=== PATIENT | male | born 2000 | race Caucasian/White ===

== ENCOUNTER 2019-04-02 14:50 | Emergency (ER) | payer SELFPAY ==
--- NOTE | 2019-04-02 15:09 | RAD ---
Exam: Chest 2 views HISTORY:Difficulty breathing, dyspnea Comparison: None FINDINGS: Lungs: No masses or consolidation. Cardiac silhouette: Normal size Pulmonary vessels: Normal Pleural Spaces: Clear Pneumothorax: None Osseous abnormalities: None of acuity. IMPRESSION: No focal consolidation.
[2019-04-02 15:37] LABS: #Eosinphils 0.2 thou/uL (0.0-0.7); #Lymphocytes 1.5 thou/uL (1.20-3.40); #Monocytes 0.7 thou/uL (0.11-0.59); #Neutrophils 6.8 thou/uL (1.40-6.50); %Basophils 0.5 % (0.0-1.0); %Lymphocytes 16.2 % (28.0-48.0); %Monocytes 7.7 % (0.0-4.0); %Neutrophils 73.7 % (31.0-61.0); Hemoglobin 16.3 g/dL (14.0-18.0); Mean Corpuscular HGB CONC 33.9 g/dL (32.0-36.0); Mean Corpuscular Hemoglobin 30.2 pg (25.0-35.0); Mean Corpuscular Volume 89.1 fL (78.0-98.0); Mean Platelet Volume 7.8 fL (7.4-10.4); Platelet Count 270 thou/uL (130-400); RBC Distribution Width 11.6 % (11.5-14.5); White Blood Cell (WBC) Count 9.2 thou/uL (4.8-10.8)
[2019-04-02 15:54] LABS: ALT (SGPT) 27 U/L (8-55); AST (SGOT) 13 U/L (5-34); Albumin 4.4 g/dL (3.5-5.0); Alkaline Phosphatase 92 U/L (Less than 750); Anion Gap 9 mmol/L (10-20); BUN (Urea Nitrogen) 12 mg/dL (8.9-20.6); Bilirubin, Total 0.8 mg/dL (0.2-1.2); Calc. Creatinine Clearance 0 mL/min (70-130); Calcium 9.4 mg/dL (7.8-10.44); Carbon Dioxide 31 mmol/L (22-29); Chloride 102 mmol/L (98-107); Estimated GFR-MDRD Greater than 90; Globulin 2.8 g/dL (2.4-3.5); Glucose 104 mg/dL (70-105); Potassium 4.1 mmol/L (3.5-5.1); Protein, Total 7.2 g/dL (6.0-8.3); Sodium 138 mmol/L (136-145)
--- NOTE | 2019-04-05 13:29 | EKG ---
Test Reason : ER INDICATION Blood Pressure : / mmHG Vent. Rate : 102 BPM Atrial Rate : 102 BPM P-R Int : 146 ms QRS Dur : 100 ms QT Int : 342 ms P-R-T Axes : 063 036 053 degrees QTc Int : 445 ms Sinus tachycardia Otherwise normal ECG Confirmed by LEANDRA CORTÉS DO ([id number]), acquisitions editor ALEXI CAMPA ([id number]) on 04/05/2019 1:29:31 PM Referred By: Confirmed By:LEANDRA CORTÉS DO
== END 2019-04-02 16:45 | disposition home or self-care (01) ==
LOC: ERS 14:50
DX: R07.9 Chest pain, unspecified (principal); F90.9 Attention-deficit hyperactivity disorder, unspecified type; Z79.899 Other long term (current) drug therapy
CPT/HCPCS: 36415; 71046; 80053; 84484; 85025; 85379; 93005

== ENCOUNTER 2019-04-03 03:28 | Emergency (ER) | payer SELFPAY ==
[2019-04-03] MEDS ORDERED: Ketorolac Tromethamine 30 MG/ML VIAL ONE (04:11)
[2019-04-03] MEDS ORDERED: Methocarbamol 1 GM in Sodium Chloride 0.9% 250 ML 250 ML IVPB SCH (04:15)
--- NOTE | 2019-04-03 08:02 | RAD ---
Exam: Chest 2 views HISTORY:Chest pain Comparison: 04/02/2019 FINDINGS: Lungs: No masses or consolidation. Cardiac silhouette: Normal size Pulmonary vessels: Normal Pleural Spaces: Clear Pneumothorax: None Osseous abnormalities: None of acuity. IMPRESSION: No focal consolidation.
--- NOTE | 2019-04-05 12:17 | EKG ---
Test Reason : Blood Pressure : / mmHG Vent. Rate : 083 BPM Atrial Rate : 083 BPM P-R Int : 170 ms QRS Dur : 106 ms QT Int : 358 ms P-R-T Axes : 068 040 055 degrees QTc Int : 420 ms Normal sinus rhythm Possible Left atrial enlargement Borderline ECG Confirmed by KATIE LR ([id number]), website/blog editor ALEXI CAMPA ([id number]) on 04/05/2019 12:16:43 PM Referred By: Confirmed By:KATIE LR
== END 2019-04-03 06:10 | disposition home or self-care (01) ==
LOC: ERS 03:28
DX: R07.89 Other chest pain (principal); F90.9 Attention-deficit hyperactivity disorder, unspecified type
CPT/HCPCS: 71046; 93005; 96365; 96375; J1885; J2800; J7050